=== PATIENT | female | born 1995 | race Caucasian/White ===

== ENCOUNTER → 2016-04-12 | Outpatient (CLI) | payer BC ==
--- NOTE | 2016-04-12 10:17 | US ---
EXAMINATION TYPE: US OB <= 14 wk fetus DATE OF EXAM: 04/12/2016 8:49 AM COMPARISON: NONE CLINICAL HISTORY: 20-year-old female Z36 Confirm dates. Date of LMP: 01/20/2016 Beta HcG (if available): not available Technique: Transabdominal (TA) scanning. FINDINGS: EXAM MEASUREMENTS: GESTATIONAL AGE / DATING Dates by LMP: (11 weeks/6 days) EDC: 10/26/2016 Dates by Current Scan: (10 weeks/2 days) EDC: 11/06/2016 MATERNAL ANATOMY Uterus: 11.9 x 6.8 x 6.2 cm Right Ovary: 5.7 x 4.2 x 3.5 cm, appears enlarged secondary to a cystic structure within measuring up to 4.7 cm. Left Ovary: 2.7 x 1.6 x 1.2 cm Post CDS / Adnexa: no free fluid GESTATION / SURVEY CRL: 3.4 cm (10 weeks/2 days) MSD: not measured Yolk Sac (normal less than 6mm): not seen Heart Rate: 161 bpm Rhythm: Normal IUP: Viable IUP IMPRESSION: 1. Single live intrauterine with gestational age of 10 weeks 2 days by crown-rump length. T his appears to be smaller than compared to gestational age by LMP (11 weeks 6 days). Correlate for ac curacy of recall. 2. Right ovary enlarged secondary to a 4.7 cm cystic structure. Findings could represent a functional cyst. Follow-up in 4-6 weeks to reassess. The can also be assessed for appropriate interva l growth at that time.
[2016-04-12 10:22] LABS: CH 30.6; CHCM 33.8; HCT 42.8 % (34.0-46.0); HGB 14.2 gm/dL (11.4-16.0); MCH 30.2 pg (25.0-35.0); MCHC 33.2 g/dL (31.0-37.0); Mean Platelet Volume 7.4; RDW 12.6 % (11.5-15.5); WBC 11.9 k/uL (4.0-11.0)
[2016-04-12 10:40] LABS: Glucose 80 mg/dL (74-99)
[2016-04-12 11:04] LABS: Hepatitis B Surface Ag Index 0.05
[2016-04-13 04:34] LABS: Toxoplasma Antibody (IgG) <3.0 IU/mL (<7.2)
[2016-04-13 07:31] LABS: HIV-1/HIV-2 Ab Screen NONREAC (NON REAC)
== END | disposition home or self-care (01) ==
LOC: RADUSWWP 08:25
PROVIDERS: ATTEND Obstetrics & Gynecology
DX: Z36 Encounter for antenatal screening of mother (principal); O26.811 Pregnancy related exhaustion and fatigue, first trimester; Z3A.10 10 weeks gestation of pregnancy
CPT/HCPCS: 76801; 82947; 85027; 86762; 86777; 86778; 86780; 86850; 86900; 86901; 87340; 87389

== ENCOUNTER → 2016-06-29 | Outpatient (CLI) | payer BC ==
--- NOTE | 2016-06-13 12:00 | US ---
EXAMINATION TYPE: US OB anatomy transabd DATE OF EXAM: 06/13/2016 9:57 AM COMPARISON: First trimester ultrasound April 12, 2016. HISTORY: O36.62X0 Large for dates 2nd Trimester TECHNIQUE: Transabdominal (TA) EXAM MEASUREMENTS: GESTATIONAL AGE / DATING Physician Established: (19 weeks/1 days) EDC: 11/06/16 Dates by LMP: unknown Dates by First Scan: (19 weeks/1 days) EDC: 11/06/16 Dates by Current Scan for: (19 weeks/0 days) EDC: 11/07/16 SURVEY IUP: Single PLACENTA: Anterior PREVIA: No previa CHARLIE: 11.3 cm CERVICAL LENGTH (transabdominal: norm > 3.0cm):3.7cm BIOMETRY PRESENTATION: Vertex BPD: 4.3 cm 19 weeks / 0 days HC: 16.4 cm 19 weeks / 1 days AC: 13.4 cm 19 weeks / 0 days FL: 2.9 cm 19 weeks / 0 days ESTIMATED WEIGHT IN GRAMS: 271 grams ESTIMATED WEIGHT IN LBS/OZS: 0 lbs. 10 oz. WEIGHT PERCENTAGE BASED ON ESTABLISHED DATE: 39 % HC/AC: 1.2 FL/AC: 21.6 HEART RATE: 140 bpm RHYTHM: Normal ANATOMY SEEN (within normal limits): * Lateral Vent (< 1 cm) 0.8 cm * Cisterna Magna (< 1.1 cm) 0.3 cm * Nuchal Fold (< 0.6 cm) 0.3 cm * Cerebellum (varies with age) 1.7 cm Choroid Plexus (bilateral) Midline Falx Cavus Septi Pellucidi Four Chamber Heart Stomach Situs Nose / Lips Diaphragm Kidneys (bilateral) Bladder Cord Insert Three Vessel Cord Arms (bilateral) Legs (bilateral) ANATOMY NOT SEEN: due to position, obesity Longitudinal Spine -2nd look taken by additional tech JJ Transverse Spine 2nd look taken by additional tech JJ Outflow tracts: LVOT/RVOT-2nd look taken by additional tech JJ MATERNAL WALL MEASUREMENT: 6.1 cm from skin to anterior uterine wall exam limited by large body habi tus Single live intrauterine gestation is redemonstrated. There is no ultrasound evidence for placenta pr evia. A breech presentation to fetus is seen on images saved currently. biometry measurements a re congruent and within normal limits. Detailed anatomical survey shows spine and outflow tracts suboptimally evaluated during real-time sca nning due to maternal body habitus and positioning. Other structures during real-time scanning and still images saved are felt within normal limits except for nose and lips which are suboptimally seen on still images saved. IMPRESSION: As above
--- NOTE | 2016-06-29 09:42 | US ---
EXAMINATION TYPE: US OB Call Back DATE OF EXAM: 06/29/2016 9:01 AM COMPARISON: NONE CLINICAL HISTORY: 20-year-old female O36.62X0 Large for dates 2nd Trimester. Assess spine, heart, nos e/lips. TECHNIQUE: Transabdominal scanning. FINDINGS: MATERNAL WALL MEASUREMENT: 5.8 cm from skin to anterior uterine wall (if exam limited due to body de la paz bitus). GESTATIONAL AGE / DATING Dates by Initial Survey Scan: (20 weeks/6 days) EDC: 11/06/2016 HEART RATE: 136 bpm RHYTHM: Normal ANATOMY SEEN (second anatomic survey look): Four Chamber Heart: Appears within normal limits when correlated on multiple views. Outflow tract:? RVOT Nose / Lips Longitudinal Spine Transverse Spine ANATOMY SUBOPTIMALLY VISUALIZED: Outflow tract:? LVOT IMPRESSION: 1. Rescan for missed anatomy. The four-chamber heart, RVOT, nose/lips, and longitudinal/transverse sp ine are visualized and appear normal. 2. Large patient body habitus persistently limits adequate delineation of the LVOT.
== END | disposition home or self-care (01) ==
LOC: RADUSWWP 06-13 08:57
PROVIDERS: ATTEND Obstetrics & Gynecology
DX: O36.62X0 Maternal care for excessive fetal growth, second trimester, not applicable or unspecified (principal); Z3A.19 19 weeks gestation of pregnancy
CPT/HCPCS: 76811

== ENCOUNTER → 2016-08-11 | Outpatient (CLI) | payer BC ==
[2016-08-11 10:16] LABS: CH 31.4; CHCM 34.9; HCT 34.4 % (34.0-46.0); HDW 2.63; HGB 12.4 gm/dL (11.4-16.0); MCH 32.5 pg (25.0-35.0); MCHC 35.9 g/dL (31.0-37.0); MCV 90.4 fL (80.0-100.0); Mean Platelet Volume 7.6; RBC 3.81 m/uL (3.80-5.40); RDW 13.1 % (11.5-15.5); WBC 13.7 k/uL (3.8-10.6)
== END | disposition home or self-care (01) ==
LOC: LABWHC1 09:01
PROVIDERS: ATTEND Obstetrics & Gynecology
DX: Z34.82 Encounter for supervision of other normal pregnancy, second trimester (principal); Z3A.00 Weeks of gestation of pregnancy not specified
CPT/HCPCS: 36415; 82950; 85027; 86850

== ENCOUNTER → 2016-08-17 | Outpatient (CLI) | payer BC ==
[2016-08-17 12:02] LABS: Glucose 3 Hour, Gest 122 mg/dL
== END | disposition home or self-care (01) ==
LOC: LABWHC1 07:51
PROVIDERS: ATTEND Obstetrics & Gynecology
DX: O99.810 Abnormal glucose complicating pregnancy (principal); Z3A.00 Weeks of gestation of pregnancy not specified
CPT/HCPCS: 36415; 82951; 82952

== ENCOUNTER 2016-10-03 09:40 | Inpatient (IN) | payer BC ==
[2016-10-03] MEDS: LACTATED RINGERS 1,000 ML IV SCH ×2 (10:15→17:53)
[2016-10-03] MEDS ORDERED: LIDOCAINE 1% (PF) 10 MG/ML (30 ML SDV) SQ PRN (10:16)
[2016-10-03] MEDS ORDERED: METHYLERGONOVINE 0.2 MG/ML 1 ML AMP IM PRN (10:16)
[2016-10-03] MEDS ORDERED: OXYTOCIN 10 UNIT/ML 1 ML VIAL IM PRN (10:16)
[2016-10-03] MEDS ORDERED: AMPICILLIN 2,000 MG in SODIUM CHLORIDE 0.9% 100 ML IVPB STA (10:16)
[2016-10-03] MEDS ORDERED: CARBOPROST TROMETHAMINE 250 MCG/ML 1 ML AMP IM PRN (10:16)
[2016-10-03] MEDS ORDERED: TERBUTALINE 1 MG/ML VIAL SQ PRN (10:16)
[2016-10-03] MEDS ORDERED: BUTORPHANOL 1 MG/ML 1 ML VIAL IV PRN (10:28)
[2016-10-03] MEDS ORDERED: OXYTOCIN 20 UNITS/1000 ML NS 1,000 ML IV SCH (10:30)
[2016-10-03 10:32] LABS: Basophils % (A) 0 %; CH 31.5; CHCM 35.1; Eosinophils % (A) 0 %; HCT 36.7 % (34.0-46.0); HDW 2.69; HGB 12.5 gm/dL (11.4-16.0); Luc # (Auto) 0.16; Luc % (Auto) 1; Lymphocytes # (A) 1.9 k/uL (1.0-4.8); Lymphocytes % (A) 13 %; MCH 30.7 pg (25.0-35.0); MCHC 34.1 g/dL (31.0-37.0); MCV 90.1 fL (80.0-100.0); Mean Platelet Volume 9.1; Monocytes # (A) 0.8 k/uL (0-1.0); Monocytes % (A) 6 %; Neutrophils # (A) 11.1 k/uL (1.3-7.7); Neutrophils % (A) 80 %; RBC 4.07 m/uL (3.80-5.40); RDW 14.1 % (11.5-15.5); WBC (Perox) 13.55
[2016-10-03 11:11] VITALS: BMI 42.9
--- NOTE | 2016-10-03 13:11 | P.HPOB ---
History of Present Illness H&P Date: 10/03/16 Chief Complaint: Oligohydramnios This is a 21-year-old female 2 para 0 with an estimated date of confinement of 11/06/2016, estimated gestational age of 35 and one sevenths weeks, who presents to labor and delivery after being seen in the office today and noted to have an extremely low amniotic fluid index. Her CHARLIE on ultrasound today was at 3.87 cm. She denies any rupture of membranes. Testing in the office did show negative pooling, ferning, and nitrazine. Ultrasound did show an estimated weight at approximate 6 lbs. 2 oz. or 75th percentile. She has been feeling more contractions and lower back pain recently. labs: GC/chlamydia-negative HIV-nonreactive Toxoplasma-negative Random glucose-80 Hepatitis B surface antigen-negative Hemoglobin-14.2 Syphilis antibody-nonreactive Rubella-immune Blood type-O- Antibody screen-negative One hour Glucola-148, three-hour Glucola within normal limits. Group B streptococcus-pending, just done today. Obstetrical history: . History of 1 miscarriage. Gynecologic history: No history of sexual transmitted diseases. Social history: She is . 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 Review of Systems Constitutional: Denies chills, Denies fever Eyes: denies blurred vision, denies pain Cardiovascular: Denies chest pain, Denies shortness of breath Respiratory: Denies cough Gastrointestinal: Reports abdominal pain (Mild lower contractions) Genitourinary: Reports pelvic pain, Reports Musculoskeletal: Reports low back pain Integumentary: Denies pruritus, Denies rash Neurological: Denies numbness, Denies weakness Psychiatric: Denies anxiety, Denies depression Past Medical History Past Medical History: No Reported History History of Any Multi-Drug Resistant Organisms: None Reported Past Surgical History: Tonsillectomy Additional Past Surgical History / Comment(s): wisdom teeth Past Anesthesia/Blood Transfusion Reactions: No Reported Reaction Past Psychological History: No Psychological Hx Reported Smoking Status: Never smoker Past Alcohol Use History: None Reported Past Drug Use History: None Reported - Past Family History Sister(s) Family Medical History: Asthma, Seizure Disorder Mother Family Medical History: Asthma, Diabetes Mellitus Medications and Allergies Home Medications Medication Instructions Recorded Confirmed Type Pnv 11/Iron Fum/Folic Acid/Om3 1 tab PO DAILY 10/03/16 10/03/16 History [Virt-Conor Dha Softgel] Allergies Allergy/AdvReac Type Severity Reaction Status Date / Time adhesive tape Allergy Rash/Hives Verified 10/03/16 10:15 Exam Osteopathic Statement: *. No significant issues noted on an osteopathic structural exam other than those noted in the History and Physical/Consult. - Vital Signs Vital signs: Vital Signs Temp Pulse Resp BP 10/03/16 10:56 98.0 F 79 16 132/81 Intake and Output 10/02/16 10/03/16 10/03/16 22:59 06:59 14:59 Other: Weight 135.624 kg Patient Weight 10/04/16 06:59 Weight 135.624 kg HEENT: Within normal limits Heart: Regular rate and rhythm Lungs: Clear to auscultation bilaterally Abdomen: , fundal height of 35-1/2 cm. Extremities: Negative Homans heart tones: Reactive Contractions: Irregular Results Result Diagrams: 10/03/16 10:13 Abnormal Lab Results - Last 24 Hours (Table) 10/03/16 Range/Units 10:13 WBC 14.0 H (3.8-10.6) k/uL Neutrophils # 11.1 H (1.3-7.7) k/uL Assessment and Plan (1) 35 weeks gestation of Status: Acute (2) Oligohydramnios without rupture of membranes in third trimester Status: Acute Plan: Due to severe oligohydramnios, the patient was counseled regarding need for delivery to prevent a cord accident or demise. The fact that she has not had spontaneous rupture membranes in her fluid is this low does make the risk of placental insufficiency very high. She was advised that if the baby did have any distress or concerning heart tones during labor, that she would need to have a . She has agreed to proceed with oxytocin induction of labor. Antibiotic prophylaxis will be given due to unknown group B streptococcus status.
[2016-10-03] MEDS: AMPICILLIN 1,000 MG in SODIUM CHLORIDE 0.9% 50 ML IVPB SCH ×2 (15:01→19:09)
[2016-10-03] MEDS ORDERED: CITRIC ACID-SODIUM CITRATE 15 ML CUP PO ONE (23:09)
[2016-10-03] MEDS ORDERED: ceFAZolin 3 GM in SODIUM CHLORIDE 0.9% 100 ML IVPB ONE (23:09)
[2016-10-03] MEDS ORDERED: LACTATED RINGERS 1,000 ML IV ONE (23:09)
[2016-10-03] MEDS ORDERED: MORPHINE SULFATE (PF) 0.3 MG/0.3 ML SYR ONE (23:34)
[2016-10-03] MEDS ORDERED: NALBUPHINE 10 MG/ML AMPUL ONE (23:34)
[2016-10-03] MEDS ORDERED: OXYTOCIN 10 UNIT/ML 1 ML VIAL ONE (23:34)
[2016-10-03] MEDS ORDERED: KETOROLAC 30 MG/ML 1 ML VIAL ONE (23:34)
[2016-10-03] MEDS ORDERED: ONDANSETRON 4 MG/2 ML VIAL ONE (23:34)
[2016-10-04] MEDS ORDERED: KETOROLAC 30 MG/ML 1 ML VIAL IVP PRN (00:02)
[2016-10-04] MEDS ORDERED: ONDANSETRON 4 MG/2 ML VIAL IVP PRN (00:02)
[2016-10-04] MEDS ORDERED: diphenhydrAMINE 50 MG/ML 1 ML VIAL IVP PRN ×3 (00:02→00:58)
[2016-10-04] MEDS ORDERED: NALOXONE 0.4 MG/ML 1 ML VIAL IV PRN (00:02)
[2016-10-04] MEDS ORDERED: NALBUPHINE 10 MG/ML AMPUL IV PRN (00:02)
[2016-10-04] MEDS ORDERED: MORPHINE SULFATE 4 MG/ML SYRINGE IVP PRN (00:02)
--- NOTE | 2016-10-04 00:32 | P.OP ---
Date of Procedure: 10/04/16 Preoperative Diagnosis: 1. Intrauterine at 35 and one sevenths weeks. 2. Oligohydramnios. 3. Failure to progress. Postoperative Diagnosis: Same plus left paratubal cyst Procedure(s) Performed: Primary low transverse section Excision of left paratubal cyst Implants: Anesthesia: spinal (Duramorph) Surgeon: Caroline Cook Casing In Line Setter #1: Kody Espitia Estimated Blood Loss (ml): 350 Pathology: other (Placenta, left paratubal cyst) Condition: stable Disposition: floor Indications for Procedure: This is a 21-year-old female 2 para 0 at 35 and one sevenths weeks who presented to labor and delivery for induction of labor after being seen in the office today and noted to have an CHARLIE of 3.87. She was knots ruptured and therefore due to the concern for placental insufficiency, the decision is made to proceed with delivery. She underwent oxytocin induction of labor and artificial rupture membranes with clear fluid noted. She progressed to a maximum of 8 cm and then made no further cervical change despite adequate contractions over several hours. At this point in time the decision was made to proceed with section. I have discussed the risks, benefits, and alternative therapies for the above- mentioned procedure and for both sedation/anesthesia as well as necessary blood products administration, if indicated, as they pertain to this patient. The patient has indicated her understanding and acceptance of the risks and procedures discussed. Operative Findings: A viable female infant is noted in the vertex occiput posterior presentation with scores of 8 at 1 minute and 9 at 5 minutes and weight of 5 lbs. 13 oz. Normal uterus tubes and ovaries are noted other than there was a left paratubal cyst that measured approximately 4-5 cm. Description of Procedure: The patient is taken to the operating room where she is placed in the dorsal supine position with leftward tilt after spinal Duramorph anesthesia is given. She is prepped and draped in the normal sterile fashion. Skin was tested and found to be adequately anesthetized. A Pfannenstiel skin incision was made with a scalpel. A second knife was used to carry the incision down to the underlying layer of fascia. The fascia was nicked in the midline with a scalpel and then extended laterally bilaterally with Cabrera scissors. The anterior lip of the fascia was grasped with 2 Yasmine clamps and then dissected off the underlying rectus muscle in the midline with Cabrera scissors. The inferior aspect of the fascial incision was grasped with 2 Yasmine clamps and dissected off the underlying rectus muscle and the midline with Cabrera scissors. Next the peritoneum layer was tented up with 2 hemostats and then entered sharply with the scalpel. The incision is extended superiorly and inferiorly with Metzenbaum scissors. Next a DeLee retractor is placed. The vesicouterine peritoneum is entered sharply with Metzenbaum scissors and extended laterally bilaterally with Metzenbaum scissors and then the bladder flap is pushed inferiorly. The lower uterine segment is incised in transverse fashion with the scalpel and then bluntly entered with a hemostat. Clear fluid is noted. The incision was then extended laterally bilaterally with 2 fingers. Next the infant's head is delivered through the incision. Nose and mouth are bulb suctioned. The remainder of the infant is easily delivered and placed on mother 's abdomen. Cord is clamped and cut. is taken to warmer by nursing staff. Uterine fundus is gently massaged and placenta is delivered manually. Uterus is exteriorized and cleared of all clots and debris. Uterine incision is closed with 0 Vicryl suture in a running locked fashion. A second layer of 0 Vicryl suture is used in a running fashion for hemostasis. Once adequate hemostasis as assured, the vesicouterine peritoneum is reapproximated with 2-0 Vicryl suture in a running fashion. Posterior cul-de-sac is suctioned of all clots and debris. At this time the left tube is noted to have a paratubal cyst measuring approximately 4-5 cm. This is brought up to the incision and then opened with Bovie cautery and drained. The cyst wall is then removed with a hemostat and sent to pathology. Excellent hemostasis is noted. Uterus is returned to the abdomen. Incision is noted to be hemostatic. Peritoneal layer is closed with 0 Vicryl suture in a running fashion. Muscle layer is reapproximated with 0 Vicryl suture in interrupted fashion. Fascia layer is then closed with 0 PDS suture with 2 sutures meeting in the midline and the knots buried in either side and in the midline. The subcutaneous tissue was then closed with 2-0 Vicryl suture. Skin layer was then closed with eliud. All sponge and needle counts are correct. The patient is taken to recovery room in stable condition.
[2016-10-04] MEDS ORDERED: LANOLIN CREAM 5 GM TUBE TOPICAL PRN (00:58)
[2016-10-04] MEDS ORDERED: Acetaminophen-Codeine 300-30mg TAB PO PRN (00:58)
[2016-10-04] MEDS ORDERED: OXYTOCIN 20 UNITS/1000 ML NS 1,000 ML IV SCH (00:58)
[2016-10-04] MEDS ORDERED: diphenhydrAMINE 25 MG CAP PO PRN (00:58)
[2016-10-04] MEDS ORDERED: diphenhydrAMINE 50 MG CAP PO PRN (00:58)
[2016-10-04] MEDS ORDERED: ZOLPIDEM 5 MG TAB PO PRN (00:58)
[2016-10-04] MEDS ORDERED: ACETAMINOPHEN TAB 325 MG TAB PO PRN (00:58)
[2016-10-04] MEDS ORDERED: METOCLOPRAMIDE 5 MG/ML 2 ML VIAL IVP PRN (00:58)
[2016-10-04] MEDS ORDERED: DIPH,PERTUS(ACELL)TETVAC-LF 0.5 ML VIAL IM ONE (01:48)
[2016-10-04] MEDS: LACTATED RINGERS 1,000 ML IV SCH ×2 (03:18→21:10)
[2016-10-04] MEDS: KETOROLAC 30 MG/ML 1 ML VIAL IVP PRN ×3 (05:39→19:31)
[2016-10-04] MEDS: SENNOSIDES-DOCUSATE SODIUM 1 EACH TAB PO SCH ×2 (08:48→19:30)
--- NOTE | 2016-10-04 09:02 | P.PNOBGPC ---
Subjective - Subjective Principal diagnosis: Status post section postoperative day #1 Interval history: Patient is doing okay. She is trying to pump her breast milk. She just got her catheter out this morning. She denies any flatus or bowel movement yet. She did have some heavier bleeding through the night but it has slowed down. Patient reports: Reports appetite normal, Reports pain well controlled Dante: other (In the nursery) Objective - Vital Signs Latest vital signs: Vital Signs Temp Pulse Resp BP Pulse Ox 10/04/16 08:47 98 10/04/16 08:00 97.6 F 62 20 96/55 10/04/16 05:02 97 10/04/16 05:00 18 10/04/16 03:39 98.0 F 77 18 109/62 98 10/04/16 03:02 18 10/04/16 02:30 76 16 114/56 97 10/04/16 02:00 74 18 122/61 99 10/04/16 01:30 67 18 120/61 97 10/04/16 01:15 66 16 117/59 98 10/04/16 01:02 97 10/04/16 01:00 67 18 120/59 97 10/04/16 00:45 96.4 F L 69 17 109/53 99 10/04/16 00:30 67 17 114/55 98 10/03/16 10:56 98.0 F 79 16 132/81 Intake and Output 10/03/16 10/04/16 10/04/16 22:59 06:59 14:59 Intake Total 300 Output Total 150 Balance 300 -150 Intake: Oral 300 Output: Urine 150 Uretheral (Yung) 75 Other: Voiding Method Indwelling Catheter # Voids 2 - Labs Labs: Abnormal Lab Results - Last 24 Hours (Table) 10/03/16 Range/Units 10:13 WBC 14.0 H (3.8-10.6) k/uL Neutrophils # 11.1 H (1.3-7.7) k/uL Assessment and Plan (1) 35 weeks gestation of Current Visit: Yes Status: Acute Code(s): Z3A.35 - 35 WEEKS GESTATION OF SNOMED Code(s): 24209014 (2) Oligohydramnios without rupture of membranes in third trimester Current Visit: Yes Status: Acute Code(s): O41.03X0 - OLIGOHYDRAMNIOS, THIRD TRIMESTER, NOT APPLICABLE OR UNSP SNOMED Code(s): 50407785 (3) delivery delivered Narrative/Plan: Impression is status post primary low transverse section postoperative day #1. Plan is to continue with postoperative care and started ambulating today. Patient will continue to pump her breast milk due to her baby being in special care nursery. Current Visit: Yes Status: Acute Code(s): O82 - ENCOUNTER FOR DELIVERY WITHOUT INDICATION SNOMED Code(s): 806615838
[2016-10-04] MEDS: Acetaminophen-Codeine 300-30mg TAB PO PRN (23:12)
[2016-10-05] MEDS: KETOROLAC 30 MG/ML 1 ML VIAL IVP PRN (05:28)
[2016-10-05 06:41] LABS: Basophils % (A) 0 %; CH 31.2; CHCM 33.8; Eosinophils # (A) 0.1 k/uL (0-0.7); Eosinophils % (A) 1 %; HCT 32.2 % (34.0-46.0); HDW 2.58; HGB 10.6 gm/dL (11.4-16.0); Luc # (Auto) 0.16; Luc % (Auto) 1; Lymphocytes # (A) 2.1 k/uL (1.0-4.8); Lymphocytes % (A) 19 %; MCH 30.6 pg (25.0-35.0); MCHC 32.9 g/dL (31.0-37.0); Mean Platelet Volume 8.8; Monocytes # (A) 0.7 k/uL (0-1.0); Monocytes % (A) 7 %; Neutrophils % (A) 72 %; RBC 3.46 m/uL (3.80-5.40); RDW 13.7 % (11.5-15.5); WBC (Perox) 11.99
--- NOTE | 2016-10-05 08:19 | P.PNOBGPC ---
Subjective - Subjective Principal diagnosis: Status post primary section postoperative day #2 Interval history: Patient has been ambulating. She is passing some flatus but no bowel movement yet. Pain is fairly well controlled with pain meds. She is pumping her breast milk. Lochia is decreasing. Patient reports: Reports appetite normal, Reports voiding normally, Reports pain well controlled, Reports ambulating normally : other (In special care nursery) Objective - Vital Signs Latest vital signs: Vital Signs Temp Pulse Resp BP Pulse Ox 10/05/16 05:00 98 10/05/16 01:00 97 10/04/16 23:19 97.6 F 62 16 89/57 99 10/04/16 21:00 98 10/04/16 19:39 98.2 F 74 16 102/58 98 10/04/16 17:00 99 10/04/16 16:00 98 F 73 20 120/67 99 10/04/16 11:54 97.6 F 73 20 100/63 10/04/16 08:47 98 Intake and Output 10/04/16 10/05/16 10/05/16 22:59 06:59 14:59 Output Total 600 Balance -600 Output: Urine 600 Other: # Voids 1 2 - Exam Extremities: Present: edema (Trace). Absent: tenderness Abdomen: Present: normal appearance, soft (Positive bowel sounds 4). Absent: distention, tenderness Incision: Present: normal, dry, intact. Absent: erythematous Uterus: Present: normal, firm. Absent: tenderness - Labs Labs: Abnormal Lab Results - Last 24 Hours (Table) 10/05/16 Range/Units 06:24 WBC 11.0 H (3.8-10.6) k/uL RBC 3.46 L (3.80-5.40) m/uL Hgb 10.6 L (11.4-16.0) gm/dL Hct 32.2 L (34.0-46.0) % Neutrophils # 8.0 H (1.3-7.7) k/uL Assessment and Plan (1) 35 weeks gestation of Current Visit: Yes Status: Acute Code(s): Z3A.35 - 35 WEEKS GESTATION OF SNOMED Code(s): 65560929 (2) Oligohydramnios without rupture of membranes in third trimester Current Visit: Yes Status: Acute Code(s): O41.03X0 - OLIGOHYDRAMNIOS, THIRD TRIMESTER, NOT APPLICABLE OR UNSP SNOMED Code(s): 59523701 (3) delivery delivered Narrative/Plan: Impression is status post delivery postoperative day #2. Plan is to continue with postoperative and care. Will continue ambulating. Baby is improving in the nursery. She is working on feeding. Current Visit: Yes Status: Acute Code(s): O82 - ENCOUNTER FOR DELIVERY WITHOUT INDICATION SNOMED Code(s): 220389687
[2016-10-05] MEDS: SENNOSIDES-DOCUSATE SODIUM 1 EACH TAB PO SCH ×2 (08:26→20:21)
--- NOTE | 2016-10-05 11:28 | P.PN ---
Progress Note - Text 1045 Anesthesia POD 2. Patient is status post section at or around midnight on 10/03/2016 under spinal anesthesia with intra-thecal preservative free morphine and 100 g. Mild pruritus, good post-op analgesia, and headache or other complications.
[2016-10-05] MEDS: Acetaminophen-Codeine 300-30mg TAB PO PRN ×2 (13:24→20:20)
[2016-10-05] MEDS: IBUPROFEN 600 MG TAB PO PRN ×2 (17:25→23:29)
[2016-10-06] MEDS: Acetaminophen-Codeine 300-30mg TAB PO PRN ×2 (01:28→14:14)
[2016-10-06] MEDS: SENNOSIDES-DOCUSATE SODIUM 1 EACH TAB PO SCH ×2 (07:32→19:52)
[2016-10-06] MEDS: IBUPROFEN 600 MG TAB PO PRN ×2 (08:42→19:52)
--- NOTE | 2016-10-06 12:40 | P.PNOBGPC ---
Subjective - Subjective Principal diagnosis: Status post primary section postoperative day #3 Interval history: Patient is doing well. She is ambulated. She is passing flatus but no bowel movement yet. She is tolerating regular diet. Lochia is slowing down. Pain is fairly well controlled with oral pain medications. Patient reports: Reports appetite normal, Reports voiding normally, Reports pain well controlled, Reports ambulating normally [place]: other (In the nursery) Objective - Vital Signs Latest vital signs: Vital Signs Temp Pulse Resp BP Pulse Ox 10/06/16 07:42 97.9 F 60 14 116/72 100 10/06/16 00:00 98.1 F 68 16 103/70 100 10/05/16 16:00 98.3 F 72 20 106/66 99 - Exam Extremities: Present: normal, edema (Trace). Absent: tenderness Abdomen: Present: normal appearance, soft (Positive bowel sounds 4). Absent: distention, tenderness Incision: Present: normal, dry, intact. Absent: erythematous Uterus: Present: normal, firm. Absent: tenderness Assessment and Plan (1) 35 weeks gestation of Current Visit: Yes Status: Acute Code(s): Z3A.35 - 35 WEEKS GESTATION OF SNOMED Code(s): 20792853 (2) Oligohydramnios without rupture of membranes in third trimester Current Visit: Yes Status: Acute Code(s): O41.03X0 - OLIGOHYDRAMNIOS, THIRD TRIMESTER, NOT APPLICABLE OR UNSP SNOMED Code(s): 07105349 (3) delivery delivered Narrative/Plan: Impression is status post primary low transverse section postoperative day #3. Plan is to continue with postoperative care. Patient continues to pump her breast milk. She is aware that we will have to discharge her tomorrow even if the baby does have to stay in the nursery. Current Visit: Yes Status: Acute Code(s): O82 - ENCOUNTER FOR DELIVERY WITHOUT INDICATION SNOMED Code(s): 776141683
[2016-10-07] MEDS: Acetaminophen-Codeine 300-30mg TAB PO PRN (02:07)
--- NOTE | 2016-10-07 06:28 | P.DS ---
Providers Date of admission: 10/03/16 09:40 Expected date of discharge: 10/07/16 Attending physician: Caroline Cook Primary care physician: Stated None - Discharge Diagnosis(es) (1) 35 weeks gestation of Current Visit: Yes Status: Acute (2) Oligohydramnios without rupture of membranes in third trimester Current Visit: Yes Status: Acute (3) delivery delivered Current Visit: Yes Status: Acute Hospital Course: This is a 21-year-old female 2 para 0 at 35 and one sevenths weeks who presented for induction of labor secondary to oligohydramnios with a fluid level of 3.87. She was not found to be ruptured. She underwent artificial rupture membranes and oxytocin induction of labor and reached a maximum of 8 cm and did not progress further despite adequate contractions. She therefore underwent a primary low transverse section under spinal Duramorph anesthesia on 10/03/2016. She delivered a viable female infant in the straight occiput posterior position with scores of 8 at 1 minute and 9 at 5 minutes and weight of 5 lbs. 13 oz. Her postoperative course has been uncomplicated. She is pumping her breast milk. Lochia is decreasing. She is passing flatus and bowel movement. Pain is fairly well controlled with ibuprofen and Tylenol 3. Vital signs are stable. Abdomen is soft with positive bowel sounds 4. Incision is clean dry and intact. Extremities show negative Homans. Impression is status post primary section postoperative day #4. Plan is to discharge home today. Routine and postoperative instructions are given. [place] will be removed and Steri-Strips placed prior to discharge. She has already received prescription for breast pump. She will be given a prescription for ibuprofen and Tylenol 3. She is advised to follow-up in the office in approximately 1 week for a postoperative check and in 6 weeks for a check. She is advised to call the office if she has any further questions or concerns prior to her appointment times. Procedures: Oxytocin induction of labor Primary low transverse section on 10/03/2016 Patient Condition at Discharge: Stable Plan - Discharge Summary New Discharge Prescriptions: New Acetaminophen-Codeine 300-30mg [Tylenol w/codeine #3] 1 each PO Q4HR PRN #30 tab PRN Reason: Mild Pain Ibuprofen [Motrin] 600 mg PO Q6HR PRN #60 tab PRN Reason: Mild Pain Or Fever >= 100.5 Continue Pnv 11/Iron Fum/Folic Acid/Om3 [Virt-Conor Dha Softgel] 1 tab PO DAILY Discharge Medication List Pnv 11/Iron Fum/Folic Acid/Om3 [Virt-Conor Dha Softgel] 1 tab PO DAILY 10/03/16 [ History] Acetaminophen-Codeine 300-30mg [Tylenol w/codeine #3] 1 each PO Q4HR PRN #30 tab 10/07/16 [Rx] Ibuprofen [Motrin] 600 mg PO Q6HR PRN #60 tab 10/07/16 [Rx] Follow up Appointment(s)/Referral(s): Caroline Cook DO [Doctor of Osteopathic Medicine] - 1 Week (Postoperative appointment in 1 week appointment in 6 weeks) Activity/Diet/Wound Care/Special Instructions: Instructions 1. Do not begin any exercise program for 3 weeks. 2. Do not resume sexual relations for 3 weeks or longer if uncomfortable. 3. You may take tub baths or showers at any time. 4. You may use tampons if desired after 3 weeks. 5. Keep the area of episiotomy (stitches) clean and dry. 6. If you are not nursing, wear a good fitting, supportive bra during the day and limit fluid intake for at least 1 week to prevent breast engorgement. 7. Call the office, [phone], within the next week to make appointment for your 6 week checkup if it has not already been made. 8. Report any of the following occurrences to the doctor promptly: a. Heavy, excessive bleeding b. Chills, fever c. Burning or frequency of urination d. Pain or redness and breasts if nursing e. Increasing pain or swelling in episiotomy (stitches). In addition to the above instructions, the following additional should be followed: 1. No heavy lifting or straining (exercising) until after 6 week checkup. 2. Keep abdominal incision clean and dry: You may wear a dressing if more comfortable. 3. Make office appointment for 10 days after going home or as instructed by her doctor. Discharge Disposition: HOME SELF-CARE
[2016-10-07] MEDS: IBUPROFEN 600 MG TAB PO PRN ×2 (08:11→16:06)
[2016-10-07] MEDS: SENNOSIDES-DOCUSATE SODIUM 1 EACH TAB PO SCH (08:11)
[2016-10-07 16:25] VITALS: BP 131/76; PULSE 73; RESP 17; TEMP 97.8
== END 2016-10-07 17:30 | disposition home or self-care (01) | DRG 766 ==
LOC: 4FBP 09:40
PROVIDERS: ADMIT Obstetrics & Gynecology; ATTEND Obstetrics & Gynecology
PROC: 10D00Z1 Extraction of Products of Conception, Low, Open Approach (ICD-10-PCS; principal; 2016-10-04)
PROC: 3E033VJ Introduction of Other Hormone into Peripheral Vein, Percutaneous Approach (ICD-10-PCS; 2016-10-04)
PROC: 0UB60ZZ Excision of Left Fallopian Tube, Open Approach (ICD-10-PCS; 2016-10-04)
DX: O41.03X0 Oligohydramnios, third trimester, not applicable or unspecified (principal); N83.8 Other noninflammatory disorders of ovary, fallopian tube and broad ligament; O99.72 Diseases of the skin and subcutaneous tissue complicating childbirth; L29.9 Pruritus, unspecified; O99.89 Other specified diseases and conditions complicating pregnancy, childbirth and the puerperium; O62.2 Other uterine inertia; Z37.0 Single live birth; Z3A.35 35 weeks gestation of pregnancy; Z82.0 Family history of epilepsy and other diseases of the nervous system; Z82.5 Family history of asthma and other chronic lower respiratory diseases; Z83.3 Family history of diabetes mellitus
CPT/HCPCS: 85025; 86850; 86870; 86880; 86900; 86901; 88304; 88307; 90715

== ENCOUNTER → 2018-03-25 | Outpatient (CLI) | payer BC ==
--- NOTE | 2018-03-25 16:02 | US ---
EXAMINATION TYPE: US transvaginal DATE OF EXAM: 03/25/2018 COMPARISON: NONE CLINICAL HISTORY: 22-year-old female N91.2 AMENORRHEA. TECHNIQUE: Transvaginal (TV). Date of LMP: 02/21/18 Patient has only had 3 cycles in a year and a half. FINDINGS: EXAM MEASUREMENTS: Uterus: Anteverted measuring 6.9 x 3.4 x 4.7 cm. Cervical nabothian cyst is noted. Endometrial Stripe: 0.5 cm, within normal limits. Right Ovary: 2.7 x 2.1 x 1.9 cm Left Ovary: 1.7 x 1.5 x 1.4 cm The ovaries are normal size with follicular change bilaterally. No evident adnexal abnormality or cul-de-sac free fluid. IMPRESSION: 1. Thin endometrial stripe at 5 mm. 2. Normal follicular change within the ovaries.
== END | disposition home or self-care (01) ==
LOC: RADUSWWP 13:00
PROVIDERS: ATTEND Nurse Practitioner Family
DX: N91.2 Amenorrhea, unspecified (principal)
CPT/HCPCS: 76830

== ENCOUNTER 2020-06-21 11:28 | Emergency (ER) | payer BC ==
[2020-06-21 11:59] VITALS: RESP 18; TEMP 98.1
--- NOTE | 2020-06-21 13:52 | US ---
EXAMINATION TYPE: US venous doppler duplex LE LT DATE OF EXAM: 06/21/2020 1:17 PM COMPARISON: NONE CLINICAL HISTORY: 24-year-old female numbness in foot/leg, mild pain. Left leg numbness that started in big toe and is going up leg, no h/o DVT SIDE PERFORMED: Left TECHNIQUE: The lower extremity deep venous system is examined utilizing real time linear array sonog martin with graded compression, doppler sonography and color-flow sonography. FINDINGS: VESSELS IMAGED: Common Femoral Vein Deep Femoral Vein Greater Saphenous Vein * Femoral Vein Popliteal Vein Small Saphenous Vein * Proximal Calf Veins (* superficial vessels) Left Leg: Negative for DVT IMPRESSION: No evidence for DVT within the left lower extremity imaged from the groin to the upper calf.
--- NOTE | 2020-06-21 14:14 | ED ---
Extremity Problem HPI - General Chief complaint: Extremity Problem,Nontraumatic Stated complaint: lt foot/leg pain Time Seen by Provider: 06/21/20 12:38 Source: patient Mode of arrival: ambulatory Limitations: no limitations - History of Present Illness Initial comments: Patient is a 24-year-old female presenting to the emergency department with complaints of numbness in her left toe that started going up the back of her left leg. She states she noticed this about a week ago and today it seems to be traveling up into the back of her calf. She is concerned for blood clot. She denies any injuries or trauma. She denies any chest pain or shortness of breath, no cough. She states she used to be on control pills but stopped 2 months ago. She denies any fevers or chills. She has no further complaints at this time. - Related Data Home Medications Medication Instructions Recorded Confirmed Pnv 11/Iron Fum/Folic Acid/Om3 1 tab PO DAILY 10/03/16 10/03/16 [Virt-Conor Dha Softgel] Previous Rx's Medication Instructions Recorded Acetaminophen-Codeine 300-30mg 1 each PO Q4HR PRN #30 tab 10/07/16 [Tylenol w/codeine #3] Ibuprofen [Motrin] 600 mg PO Q6HR PRN #60 tab 10/07/16 Allergies Allergy/AdvReac Type Severity Reaction Status Date / Time adhesive tape Allergy Rash/Hives Verified 06/21/20 11:59 Review of Systems ROS Statement: Those systems with pertinent positive or pertinent negative responses have been documented in the HPI. ROS Other: All systems not noted in ROS Statement are negative. Past Medical History Past Medical History: No Reported History History of Any Multi-Drug Resistant Organisms: None Reported Past Surgical History: Tonsillectomy Additional Past Surgical History / Comment(s): wisdom teeth Past Anesthesia/Blood Transfusion Reactions: No Reported Reaction Past Psychological History: No Psychological Hx Reported Past Alcohol Use History: None Reported Past Drug Use History: None Reported - Past Family History Sister(s) Family Medical History: Asthma, Seizure Disorder Mother Family Medical History: Asthma, Diabetes Mellitus General Exam - General Exam Comments Initial Comments: GENERAL: Patient is well-developed and well-nourished. Patient is nontoxic and in no acute distress. HEAD: Atraumatic, normocephalic. EYES: Pupils equal round and reactive to light, extraocular movements intact, sclera anicteric, conjunctiva are normal. Eyelids were unremarkable. ENT: TMs normal, nares patent, oropharynx clear without exudates. Moist mucous membranes. NECK: Normal range of motion, supple without lymphadenopathy or JVD. LUNGS: Unlabored respirations. Breath sounds clear to auscultation bilaterally and equal. No wheezes rales or rhonchi. HEART: Regular rate and rhythm without murmurs, rubs or gallops. ABDOMEN: Soft, nontender, normoactive bowel sounds. No guarding, no rebound. No masses appreciated. : Deferred MUSCULOSKELETAL: Normal extremities with adequate strength and normal range of motion, no pitting or edema. No clubbing or cyanosis. She is neurovascular intact bilateral lower extremities. NEUROLOGICAL: Patient is alert and oriented x 3. Motor and sensory are also intact. Cranial nerves II through XII grossly intact. Symmetrical smile. Normal speech, normal gait. PSYCH: Normal mood, normal affect. SKIN: Warm, Dry, normal turgor, no rashes or lesions noted. Limitations: no limitations Course Vital Signs 06/21/20 11:56 Temperature 98.1 F Pulse Rate 82 Respiratory 18 Rate Blood Pressure 131/81 O2 Sat by Pulse 99 Oximetry Medical Decision Making - Medical Decision Making Patient is a 24-year-old female here with complaints of numbness in her left toe that extending upward towards her left calf. No pain, no redness. No history of blood clots. No recent travel. Her ultrasound shows negative for DVT of the left lower extremity. The rest of exam is unremarkable, no acute neuro deficits. Discussed with patient to follow up with her PCP. She is in agreement with this plan and care and she is stable for discharge. Disposition Clinical Impression: Numbness of left foot Disposition: HOME SELF-CARE Condition: Stable Instructions (If sedation given, give patient instructions): Normal Exam (ED) Additional Instructions: Please return to the Emergency Department if symptoms worsen or any other concerns. Ultrasound today is negative for DVT of the left lower extremity. Follow-up with your primary care physician as discussed. Is patient prescribed a controlled substance at d/c from ED?: No Referrals: oJse Barry MD [Primary Care Provider] - 1-2 days Time of Disposition: 14:14
[2020-06-21 14:24] VITALS: BP 143/65; PULSE 77
== END 2020-06-21 14:22 | disposition home or self-care (01) ==
LOC: EC 11:28
DX: R20.0 Anesthesia of skin (principal); Z90.09 Acquired absence of other part of head and neck
CPT/HCPCS: 99283

== ENCOUNTER → 2023-06-15 | Outpatient (CLI) | payer BC ==
--- NOTE | 2023-06-15 10:06 | US ---
EXAMINATION TYPE: US abdomen complete DATE OF EXAM: 06/15/2023 COMPARISON: NONE CLINICAL INDICATION: Female, 27 years old with history of R74.8 ABNORMAL LEVELS OF OTHER SERUM ENZYME S; abn liver enzymes TECHNIQUE: Multiple sonographic images of the abdomen are obtained. FINDINGS: EXAM MEASUREMENTS: Liver Length: 17 cm Gallbladder Wall: .3 cm CBD: .4 cm Spleen: 10 cm Right Kidney: 11.3 x 4.3 x 5.5 cm Left Kidney: 12.5 x 5.0 x 4.1 cm DIE ASSEMBLER NOTES: Pancreas: Tail obscured by overlying bowel gas Liver: Increased attenuation Gallbladder: No stones seen Evidence for sonographic Abad's sign: No CBD: wnl Spleen: wnl Right Kidney: No hydronephrosis or masses seen Left Kidney: No hydronephrosis or masses seen Upper IVC: wnl Abd Aorta: wnl The intrahepatic portion of the IVC and proximal abdominal aorta are within normal limits. There is no evidence of cholelithiasis. Common bile duct is unremarkable. The visualized portions of the oden creas are homogenous. The spleen is unremarkable. Kidneys are symmetric and free of hydronephrosis. No renal lesions are seen. IMPRESSION: Probable hepatic steatosis.
== END | disposition home or self-care (01) ==
LOC: RADUSWWP 09:05
PROVIDERS: ATTEND Pediatrics
DX: R74.8 Abnormal levels of other serum enzymes (principal)
CPT/HCPCS: 76700

== ENCOUNTER → 2023-08-30 | Outpatient (CLI) | payer BC | END | disposition home or self-care (01) | LOC: LABWHC1 13:24 | PROVIDERS: ATTEND Obstetrics & Gynecology | DX: Z78.9 Other specified health status (principal) | CPT/HCPCS: 36415; 84144 ==